=== PATIENT | female | born 1955 | race Caucasian/White ===

== ENCOUNTER 2019-04-11 23:29 | Inpatient (IN) ==
[2019-04-12] MEDS ORDERED: ALBUTEROL 2.5 MG/3 ML NEB RESP TX PRN (01:46)
[2019-04-12] MEDS ORDERED: PANTOPRAZOLE 40 MG VIAL IV SCH (02:00)
[2019-04-12] MEDS ORDERED: SODIUM CHLORIDE 0.9% 1,000 ML IV SCH ×2 (02:00→08:41)
[2019-04-12 02:15] LABS: Basophils # 0.1 10*3/uL (0.0-0.2); Basophils % 0.3 % (0.0-0.8); Hematocrit 39.9 VOL% (35.7-47.0); Hemoglobin 13.6 GM/DL (12.0-16.0); Immature Granulocytes % 0.5 %; Immature Granulocytes Absolute 0.18 #; Lymphocytes # 0.7 10*3/uL (1.4-4.0); Lymphocytes % 2.1 % (21.3-54.2); Mean Corpuscular HGB Conc 34.1 GM/DL (32-36); Monocytes % 3.3 % (1.7-12.7); Neutrophils % 93.8 % (38.7-73.9); Platelet Count 256 T/CUMM (130-400); Red Blood Count 4.75 MC/CUMM (3.8-5.5); Red Cell Distribution Width 13.4 % (9.3-17.3); White Blood Count 32.8 T/CUMM (4-12)
[2019-04-12 02:19] LABS: Apearance,Urine CLOUDY (Clear); Bilirubin,Urine Negative (Negative); Blood, Urine Large mg/dL (Negative); Glucose,Urine (UA) >=500 mg/dL (Negative); Ketones,Urine Negative (Negative); Nitrite,Urine Negative (Negative); Protein,Urine 30 MG/DL; RBC,Urine 52 /HPF (0-4); Urine Color Amber (Yellow); Urine Specific Gravity 1.017 (1.001-1.035); Urine Urobilinogen < 2.0 EU/DL (0.2-1.0); WBC,Urine 1090 /HPF (0-6)
[2019-04-12] MEDS: POTASSIUM CHLORIDE RIDER 10 MEQ in PREMIX 1 EACH IV PRN ×6 (02:29→16:39)
[2019-04-12] MEDS ORDERED: PIPERACILLIN/TAZOBACTAM 3,375 MG in SODIUM CHLORIDE 0.9% 100 ML IV ONE (02:30)
[2019-04-12 02:31] LABS: Alanine Aminotransferase 284 U/L (13-56); Albumin 1.9 G/DL (3.4-5.0); Alkaline Phosphatase 178 U/L (45-117); Aspartate Amino Transferase 873 U/L (0-37); Blood Urea Nitrogen 68 MG/DL (7-18); Calcium 7.3 MG/DL (8.5-10.1); Estimated Glom Filtration Rate 16 ML/MIN; Osmolality,Calculated 364.2 MOS/KG (273-304); Total Protein 5.8 G/DL (6.4-8.3)
[2019-04-12 02:32] LABS: CKMB % 0.8 %
[2019-04-12 02:38] LABS: Glucose 753 MG/DL (74-106); INR 1.4; PT Patient Result 14.8 SECS (9.6-12.2); Partial Thromboplastin Time 26.4 SECS (20.8-36.0)
[2019-04-12 02:39] LABS: HDL Cholesterol 28 MG/DL (40-60); Risk Ratio 4.89; Thyroid Stimulating Hormone < 0.005 uIU/ml (0.358-3.74); Triglycerides 223 MG/DL (2-150); Troponin I 0.52 NG/ML (0.00-0.045); VLDL CHOLESTEROL 44.6 MG/DL
[2019-04-12 03:22] LABS: Band Neutrophils 2 % (0-10); Lymphocytes 3 % (20-55); Segmented Neutrophils 92 % (50-85); Total Cells Counted 100
[2019-04-12 03:23] LABS: Platelet Estimate Normal
[2019-04-12 03:24] LABS: Hypochromasia Slight; Microcytosis 1+
[2019-04-12] MEDS ORDERED: NOREPINEPHRINE 8 MG in SODIUM CHLORIDE 0.9% 242 ML IV PRN (03:29)
[2019-04-12 03:40] LABS: HIV Antigen/Antibody Result Nonreactive (Nonreactive); Hepatitis B Core IgM Quant 0.06 Index; Hepatitis B Surface Ag Quant 0.97 Index; Hepatitis B Surface Ag Result Negative (Negative); Hepatitis C Virus Ab Quant 0.17 Index; Hepatitis C Virus Ab Result Negative (Negative)
[2019-04-12] MEDS ORDERED: MAGNESIUM SULF RIDER 4 GM in PREMIX 1 EACH IV PRN (03:41)
[2019-04-12] MEDS ORDERED: SODIUM BICARB INJ 100 MEQ in STERILE WATER INJ 400 ML IV PRN (03:41)
[2019-04-12] MEDS ORDERED: MAGNESIUM SULF RIDER 2 GM in PREMIX 1 EACH IV PRN (03:41)
[2019-04-12] MEDS ORDERED: SODIUM CHLORIDE 0.9% IV PRN (03:41)
[2019-04-12] MEDS ORDERED: SODIUM PHOSPHATE IV PRN (03:41)
[2019-04-12 04:16] LABS: Barbiturates Screen,Urine Negative (Negative); Benzodiazepines Screen,Urine Negative (Negative); Cannabinoid Screen,Urine Negative (Negative); Opiate Screen,Urine Negative (Negative); Phencyclidine Screen,Urine Negative (Negative)
[2019-04-12 04:19] LABS: ABG Base Excess 0.7 MMOL/L (-2.5-2.5); ABG Oxygen Saturation 98.5 % (95-100); ABG PCO2 46.4 MM HG (35-48); ABG PH 7.367 (7.35-7.45); ABG TCO2 22.7 MMOL/L (23-27)
[2019-04-12] MEDS: SODIUM CHLORIDE 0.9% 1,000 ML IV SCH ×2 (04:32→11:19)
[2019-04-12 06:26] LABS: Basophils # 0.1 10*3/uL (0.0-0.2); Basophils % 0.2 % (0.0-0.8); Hematocrit 36.2 VOL% (35.7-47.0); Immature Granulocytes % 0.6 %; Immature Granulocytes Absolute 0.16 #; Lymphocytes % 3.4 % (21.3-54.2); Mean Corpuscular HGB Conc 33.1 GM/DL (32-36); Mean Platelet Volume 12.2 FL (9.6-12.0); Monocytes % 3.2 % (1.7-12.7); Neutrophils % 92.6 % (38.7-73.9); Platelet Count 230 T/CUMM (130-400); Red Blood Count 4.26 MC/CUMM (3.8-5.5); Red Cell Distribution Width 13.6 % (9.3-17.3); White Blood Count 28.7 T/CUMM (4-12)
[2019-04-12 06:43] LABS: INR 1.4; PT Patient Result 15.1 SECS (9.6-12.2); Partial Thromboplastin Time 26.6 SECS (20.8-36.0)
[2019-04-12 06:47] LABS: Albumin 1.7 G/DL (3.4-5.0); Bilirubin,Total 0.8 MG/DL (0.2-1.0); Calcium 7.1 MG/DL (8.5-10.1); Osmolality,Calculated 359.6 MOS/KG (273-304); Total Protein 5.3 G/DL (6.4-8.3)
[2019-04-12 06:49] LABS: Anisocytosis 1+; Band Neutrophils 40 % (0-10); Calcium 7.1 MG/DL (8.5-10.1); Lymphocytes 2 % (20-55); Nucleated Red Blood Cells 1 (0-5); Osmolality,Calculated 360.4 MOS/KG (273-304); Platelet Estimate Normal; Segmented Neutrophils 57 % (50-85); Total Cells Counted 100
[2019-04-12] MEDS ORDERED: LEVOFLOXACIN INJ 750 MG in PREMIX 1 EACH IV ONE (08:00)
[2019-04-12 09:21] LABS: Hematocrit 31.2 VOL% (35.7-47.0); Hemoglobin 10.6 GM/DL (12.0-16.0)
[2019-04-12 10:19] LABS: Calcium 6.1 MG/DL (8.5-10.1)
[2019-04-12] MEDS ORDERED: POTASSIUM CHLORIDE RIDER 100 ML IV ONE ×2 (10:29→11:17)
[2019-04-12] MEDS: POTASSIUM CHLORIDE RIDER 20 MEQ in PREMIX 1 EACH IV PRN ×4 (10:30→15:46)
[2019-04-12] MEDS: PANTOPRAZOLE 40 MG VIAL IV SCH ×2 (10:40→20:39)
[2019-04-12] MEDS: POTASSIUM CHLORIDE INJ 40 MEQ in LACTATED RINGERS 1,000 ML IV SCH ×3 (11:31→20:31)
[2019-04-12 12:03] LABS: Calcium 6.5 MG/DL (8.5-10.1); Osmolality,Calculated 360.2 MOS/KG (273-304)
[2019-04-12] MEDS ORDERED: VANCOMYCIN INJ 750 MG in SODIUM CHLORIDE 0.9% 250 ML IV SCH (13:00)
[2019-04-12] MEDS ORDERED: INSULIN REGULAR 100 UNIT/ML SUBCUT SCH (14:00)
[2019-04-12 14:06] LABS: Calcium 6.8 MG/DL (8.5-10.1); Osmolality,Calculated 358.3 MOS/KG (273-304)
[2019-04-12] MEDS ORDERED: INSULIN REGULAR DRIP 100 ML IV PRN (15:00)
[2019-04-12 15:24] LABS: Calcium 6.7 MG/DL (8.5-10.1)
[2019-04-12] MEDS: PIPERACILLIN/TAZOBACTAM 3,375 MG in SODIUM CHLORIDE 0.9% 100 ML IV SCH (16:45)
[2019-04-12 17:45] LABS: CKMB % 0.8 %
[2019-04-12] MEDS: ENOXAPARIN 40 MG/0.4 ML SYRINGE SUBCUT SCH (17:47)
[2019-04-12 17:50] LABS: Troponin I 0.778 NG/ML (0.00-0.045)
[2019-04-12 20:18] LABS: Osmolality,Calculated 339.7 MOS/KG (273-304)
[2019-04-12] MEDS ORDERED: DEXT 5% LACT RING KCL 20 MEQ 20 MEQ/1,000 ML BAG IV SCH (20:30)
[2019-04-12] MEDS: LACTULOSE 20 GM/30 ML UDCUP NG SCH (20:39)
[2019-04-12] MEDS ORDERED: SODIUM CHLORIDE 0.45% 1,000 ML IV SCH (20:41)
[2019-04-13 00:01] LABS: Calcium 7.2 MG/DL (8.5-10.1); Osmolality,Calculated 345.3 MOS/KG (273-304)
[2019-04-13] MEDS ORDERED: DEXT 5% NACL 0.45% KCL 20 MEQ 20 MEQ/1,000 ML BAG IV SCH (00:30)
[2019-04-13 02:30] LABS: Osmolality,Calculated 346.5 MOS/KG (273-304)
[2019-04-13] MEDS ORDERED: DEXTROSE 5% 1,000 ML IV SCH (03:30)
[2019-04-13] MEDS ORDERED: DEXTROSE 10% 250 ML IV PRN (03:49)
[2019-04-13 03:55] LABS: Basophils # 0.1 10*3/uL (0.0-0.2); Basophils % 0.2 % (0.0-0.8); Eosinophils # 0.1 10*3/uL (0.0-0.87); Eosinophils % 0.2 % (0.00-10.9); Hematocrit 30.5 VOL% (35.7-47.0); Hemoglobin 10.3 GM/DL (12.0-16.0); Immature Granulocytes % 1.5 %; Immature Granulocytes Absolute 0.47 #; Lymphocytes # 2.2 10*3/uL (1.4-4.0); Lymphocytes % 7.2 % (21.3-54.2); Mean Corpuscular HGB Conc 33.8 GM/DL (32-36); Mean Corpuscular Volume 84.7 FL (87-102); Mean Platelet Volume 11.3 FL (9.6-12.0); Monocytes % 3.1 % (1.7-12.7); Neutrophils % 87.8 % (38.7-73.9); Platelet Count 215 T/CUMM (130-400); White Blood Count 30.8 T/CUMM (4-12)
[2019-04-13] MEDS ORDERED: DEXTROSE 50% 25 GM/50 ML SYRINGE IV PRN ×2 (03:55→03:56)
[2019-04-13 04:15] LABS: Alanine Aminotransferase 184 U/L (13-56); Albumin 1.4 G/DL (3.4-5.0); Alkaline Phosphatase 117 U/L (45-117); Aspartate Amino Transferase 176 U/L (0-37); Bilirubin,Total < 0.39 MG/DL (0.2-1.0); Blood Urea Nitrogen 51 MG/DL (7-18); Estimated Glom Filtration Rate 34 ML/MIN; Glucose 78 MG/DL (74-106); Osmolality,Calculated 343.5 MOS/KG (273-304); Total Protein 4.7 G/DL (6.4-8.3)
[2019-04-13 04:29] LABS: Free T4 (Free Thyroxine) 1.39 NG/DL (0.76-1.46); Thyroid Stimulating Hormone 0.01 uIU/ml (0.358-3.74)
[2019-04-13] MEDS: POTASSIUM CHLORIDE RIDER 20 MEQ in PREMIX 1 EACH IV PRN ×2 (04:31→11:49)
[2019-04-13] MEDS: PIPERACILLIN/TAZOBACTAM 3,375 MG in SODIUM CHLORIDE 0.9% 100 ML IV SCH ×3 (04:40→21:22)
[2019-04-13 04:50] LABS: Lymphocytes 5 % (20-55); Platelet Estimate Normal; Segmented Neutrophils 95 % (50-85); Total Cells Counted 100
[2019-04-13 04:51] LABS: Hypochromasia Slight
[2019-04-13 04:55] LABS: Microcytosis 1+
[2019-04-13] MEDS: POTASSIUM CHLORIDE RIDER 10 MEQ in PREMIX 1 EACH IV PRN ×2 (04:58→13:53)
[2019-04-13 06:06] LABS: Calcium 6.9 MG/DL (8.5-10.1); Osmolality,Calculated 340.9 MOS/KG (273-304)
[2019-04-13 06:38] LABS: ABG Base Excess 1.6 MMOL/L (-2.5-2.5); ABG HCO3 25.8 MMOL/L (20-26); ABG Oxygen Saturation 94.8 % (95-100); ABG PCO2 39.4 MM HG (35-48); ABG PH 7.428 (7.35-7.45); ABG PO2 67.6 MM HG (80-95); ABG TCO2 23.4 MMOL/L (23-27); Allen Test Positive
[2019-04-13] MEDS: methylPREDNISolone SOD SUC 40 MG/1 ML VIAL IV SCH ×2 (08:19→16:19)
[2019-04-13] MEDS: LACTULOSE 20 GM/30 ML UDCUP NG SCH (08:58)
[2019-04-13] MEDS ORDERED: SODIUM CHLORIDE 0.45% 1,000 ML IV SCH (09:00)
[2019-04-13] MEDS: PANTOPRAZOLE 40 MG VIAL IV SCH ×2 (10:15→22:26)
[2019-04-13 11:33] LABS: Calcium 7.4 MG/DL (8.5-10.1); Osmolality,Calculated 330.3 MOS/KG (273-304)
[2019-04-13] MEDS: LEVOFLOXACIN INJ 750 MG in PREMIX 1 EACH IV SCH (11:58)
[2019-04-13] MEDS: ALBUTEROL/IPRATROPIUM 3 ML NEB RESP TX SCH ×2 (12:10→19:20)
[2019-04-13] MEDS: VANCOMYCIN INJ 750 MG in SODIUM CHLORIDE 0.9% 250 ML IV SCH (13:20)
[2019-04-13 13:47] LABS: Calcium 7.2 MG/DL (8.5-10.1)
[2019-04-13] MEDS ORDERED: INSULIN LISPRO 100 UNIT/ML SUBCUT SCH (14:00)
[2019-04-13] MEDS ORDERED: INFLUENZA VIRUS VACCINE 0.5 ML SYRINGE IM ONE (15:04)
[2019-04-13] MEDS: ENOXAPARIN 40 MG/0.4 ML SYRINGE SUBCUT SCH (17:39)
[2019-04-13] MEDS: INSULIN LISPRO 100 UNIT/ML SUBCUT SCH ×2 (17:42→20:35)
[2019-04-13 23:17] LABS: Calcium 7.2 MG/DL (8.5-10.1); Osmolality,Calculated 319.2 MOS/KG (273-304)
[2019-04-14] MEDS: INSULIN LISPRO 100 UNIT/ML SUBCUT SCH ×6 (00:18→21:24)
[2019-04-14] MEDS: ALBUTEROL/IPRATROPIUM 3 ML NEB RESP TX SCH ×4 (00:37→19:58)
[2019-04-14] MEDS: methylPREDNISolone SOD SUC 40 MG/1 ML VIAL IV SCH ×3 (00:39→17:17)
[2019-04-14] MEDS: PIPERACILLIN/TAZOBACTAM 3,375 MG in SODIUM CHLORIDE 0.9% 100 ML IV SCH ×2 (06:41→12:38)
[2019-04-14 08:06] LABS: Albumin 1.5 G/DL (3.4-5.0); Bilirubin,Direct 0.16 MG/DL (0.0-0.20); Bilirubin,Indirect 0.3 MG/DL (0.0-1.0); Bilirubin,Total 0.5 MG/DL (0.2-1.0); Total Protein 4.8 G/DL (6.4-8.3)
[2019-04-14] MEDS: PANTOPRAZOLE 40 MG VIAL IV SCH (09:25)
[2019-04-14] MEDS: LEVOFLOXACIN INJ 750 MG in PREMIX 1 EACH IV SCH (12:38)
[2019-04-14] MEDS: VANCOMYCIN INJ 750 MG in SODIUM CHLORIDE 0.9% 250 ML IV SCH (12:40)
[2019-04-14] MEDS: ENOXAPARIN 40 MG/0.4 ML SYRINGE SUBCUT SCH (17:15)
[2019-04-14 17:51] LABS: Myoglobin, Serum 2976 mcg/L (<=90)
[2019-04-14] MEDS: predniSONE 20 MG TABLET PO SCH (21:25)
[2019-04-15] MEDS: ALBUTEROL/IPRATROPIUM 3 ML NEB RESP TX SCH ×4 (00:51→20:02)
[2019-04-15] MEDS: INSULIN LISPRO 100 UNIT/ML SUBCUT SCH ×6 (01:13→20:14)
[2019-04-15 06:24] LABS: Calcium 6.8 MG/DL (8.5-10.1); Osmolality,Calculated 300.3 MOS/KG (273-304)
[2019-04-15] MEDS: LEVOFLOXACIN 750 MG TABLET PO SCH (10:13)
[2019-04-15] MEDS: predniSONE 20 MG TABLET PO SCH ×2 (10:14→20:14)
[2019-04-15] MEDS: PANTOPRAZOLE 40 MG TABLET PO SCH (10:14)
[2019-04-15] MEDS: CEPHALEXIN 50 MG/ML 100 ML/BOTTLE PO SCH ×3 (14:08→20:13)
[2019-04-15] MEDS: ENOXAPARIN 40 MG/0.4 ML SYRINGE SUBCUT SCH (16:21)
[2019-04-16] MEDS: ALBUTEROL/IPRATROPIUM 3 ML NEB RESP TX SCH ×4 (00:54→19:47)
[2019-04-16] MEDS: INSULIN LISPRO 100 UNIT/ML SUBCUT SCH ×4 (08:45→21:33)
[2019-04-16] MEDS: CEPHALEXIN 50 MG/ML 100 ML/BOTTLE PO SCH ×4 (08:48→21:32)
[2019-04-16] MEDS: PANTOPRAZOLE 40 MG TABLET PO SCH (08:48)
[2019-04-16] MEDS: predniSONE 20 MG TABLET PO SCH ×2 (08:48→21:32)
[2019-04-16] MEDS: LEVOFLOXACIN 750 MG TABLET PO SCH (08:48)
[2019-04-16] MEDS: MAGNESIUM OXIDE 400 MG TABLET PO SCH ×2 (12:30→21:31)
[2019-04-16] MEDS: ENOXAPARIN 40 MG/0.4 ML SYRINGE SUBCUT SCH (16:25)
[2019-04-17] MEDS: ALBUTEROL/IPRATROPIUM 3 ML NEB RESP TX SCH ×2 (01:05→07:34)
[2019-04-17 05:52] LABS: Basophils % 0.1 % (0.0-0.8); Hematocrit 27.2 VOL% (35.7-47.0); Hemoglobin 9.1 GM/DL (12.0-16.0); Immature Granulocytes % 0.7 %; Immature Granulocytes Absolute 0.06 #; Lymphocytes # 0.5 10*3/uL (1.4-4.0); Mean Corpuscular HGB Conc 33.5 GM/DL (32-36); Mean Corpuscular Volume 83.7 FL (87-102); Mean Platelet Volume 12.4 FL (9.6-12.0); Monocytes % 3.7 % (1.7-12.7); Neutrophils % 89.5 % (38.7-73.9); Red Blood Count 3.25 MC/CUMM (3.8-5.5); Red Cell Distribution Width 13.6 % (9.3-17.3); White Blood Count 8.7 T/CUMM (4-12)
[2019-04-17 06:02] LABS: Platelet Count 87 T/CUMM (130-400)
[2019-04-17 06:10] LABS: Calcium 6.9 MG/DL (8.5-10.1); Osmolality,Calculated 286.4 MOS/KG (273-304)
[2019-04-17 06:17] LABS: Hypochromasia Slight; Microcytosis 1+
[2019-04-17 06:18] LABS: Platelet Estimate Decreased
[2019-04-17] MEDS: LEVOFLOXACIN 750 MG TABLET PO SCH (08:31)
[2019-04-17] MEDS: PANTOPRAZOLE 40 MG TABLET PO SCH (08:31)
[2019-04-17] MEDS: predniSONE 20 MG TABLET PO SCH (08:32)
[2019-04-17] MEDS: POTASSIUM CHLORIDE 20 MEQ TABLET PO SCH ×3 (08:32→16:32)
[2019-04-17] MEDS: INSULIN LISPRO 100 UNIT/ML SUBCUT SCH ×3 (08:32→16:56)
[2019-04-17] MEDS: CEPHALEXIN 50 MG/ML 100 ML/BOTTLE PO SCH ×2 (08:32→12:48)
[2019-04-17] MEDS: MAGNESIUM OXIDE 400 MG TABLET PO SCH (08:37)
[2019-04-17] MEDS ORDERED: MAGNESIUM SULF RIDER 4 GM in PREMIX 1 EACH IV ONE (09:00)
[2019-04-17 15:59] VITALS: BP 114/55
== END 2019-04-17 17:02 | disposition home or self-care (01) | DRG 871 ==
LOC: SUATTDRO 04-12 00:46 → N.ICU 04-12 00:46 → N.2E 04-16 14:00
PROVIDERS: ADMIT Internal Medicine; ATTEND Family Medicine